=== PATIENT | male | born 1950 | race Hispanic/Latino ===

== ENCOUNTER 2021-07-31 11:01 | Outpatient (CLI) | payer MEDICARE ==
[2021-07-31] MEDS ORDERED: LIDOCAINE (4%) 40 MG/ML TOPICAL SOLN 50 ML BOTTLE TP ONE (11:49)
[2021-07-31] MEDS ORDERED: SILVER NITRATE APPLICATOR 1 EA TP ONE (12:25)
== END 2021-07-31 11:02 | disposition home or self-care (01) ==
LOC: WOUND 11:01
PROVIDERS: ATTEND Surgery
DX: T87.89 Other complications of amputation stump (principal); E11.621 Type 2 diabetes mellitus with foot ulcer; L97.522 Non-pressure chronic ulcer of other part of left foot with fat layer exposed; E11.622 Type 2 diabetes mellitus with other skin ulcer; L97.822 Non-pressure chronic ulcer of other part of left lower leg with fat layer exposed; L97.812 Non-pressure chronic ulcer of other part of right lower leg with fat layer exposed; L97.111 Non-pressure chronic ulcer of right thigh limited to breakdown of skin; L89.896 Pressure-induced deep tissue damage of other site; L98.492 Non-pressure chronic ulcer of skin of other sites with fat layer exposed; S71.101A Unspecified open wound, right thigh, initial encounter; E11.40 Type 2 diabetes mellitus with diabetic neuropathy, unspecified; E11.22 Type 2 diabetes mellitus with diabetic chronic kidney disease; I12.9 Hypertensive chronic kidney disease with stage 1 through stage 4 chronic kidney disease, or unspecified chronic kidney disease; N18.9 Chronic kidney disease, unspecified; L02.512 Cutaneous abscess of left hand; Z87.891 Personal history of nicotine dependence; Z96.643 Presence of artificial hip joint, bilateral; Z79.4 Long term (current) use of insulin; Z79.82 Long term (current) use of aspirin; X58.XXXA Exposure to other specified factors, initial encounter; Y93.89 Activity, other specified; Y92.89 Other specified places as the place of occurrence of the external cause; Y99.8 Other external cause status; Y83.5 Amputation of limb(s) as the cause of abnormal reaction of the patient, or of later complication, without mention of misadventure at the time of the procedure; Y92.238 Other place in hospital as the place of occurrence of the external cause
CPT/HCPCS: 11042; 11045; G0463; 99202; 99212

== ENCOUNTER 2021-08-07 10:32 | Outpatient (CLI) | payer MEDICARE ==
[2021-08-07] MEDS ORDERED: LIDOCAINE (4%) 40 MG/ML TOPICAL SOLN 50 ML BOTTLE TP ONE (11:51)
[2021-08-07] MEDS ORDERED: SILVER NITRATE APPLICATOR 1 EA TP ONE (12:44)
== END 2021-08-07 10:33 | disposition home or self-care (01) ==
LOC: WOUND 10:32
PROVIDERS: ATTEND Surgery
DX: T87.89 Other complications of amputation stump (principal); E11.621 Type 2 diabetes mellitus with foot ulcer; L97.522 Non-pressure chronic ulcer of other part of left foot with fat layer exposed; E11.622 Type 2 diabetes mellitus with other skin ulcer; L97.822 Non-pressure chronic ulcer of other part of left lower leg with fat layer exposed; L97.812 Non-pressure chronic ulcer of other part of right lower leg with fat layer exposed; L97.111 Non-pressure chronic ulcer of right thigh limited to breakdown of skin; L89.896 Pressure-induced deep tissue damage of other site; L98.492 Non-pressure chronic ulcer of skin of other sites with fat layer exposed; S71.101D Unspecified open wound, right thigh, subsequent encounter; E11.40 Type 2 diabetes mellitus with diabetic neuropathy, unspecified; E11.22 Type 2 diabetes mellitus with diabetic chronic kidney disease; I12.9 Hypertensive chronic kidney disease with stage 1 through stage 4 chronic kidney disease, or unspecified chronic kidney disease; N18.9 Chronic kidney disease, unspecified; L02.512 Cutaneous abscess of left hand; Z87.891 Personal history of nicotine dependence; Z96.643 Presence of artificial hip joint, bilateral; Z79.4 Long term (current) use of insulin; Z79.82 Long term (current) use of aspirin; X58.XXXD Exposure to other specified factors, subsequent encounter; Y83.5 Amputation of limb(s) as the cause of abnormal reaction of the patient, or of later complication, without mention of misadventure at the time of the procedure

== ENCOUNTER 2021-08-10 09:59 | Outpatient (CLI) | payer MEDICARE | END 2021-08-10 10:00 | disposition home or self-care (01) | LOC: LAB 09:59 | PROVIDERS: ATTEND Surgery | DX: E08.621 Diabetes mellitus due to underlying condition with foot ulcer (principal) | CPT/HCPCS: 36415; 83036 ==

== ENCOUNTER 2021-08-14 10:29 | Outpatient (CLI) | payer MEDICARE ==
[2021-08-14] MEDS ORDERED: LIDOCAINE (4%) 40 MG/ML TOPICAL SOLN 50 ML BOTTLE TP ONE ×2 (11:00→11:02)
[2021-08-14] MEDS ORDERED: SILVER NITRATE APPLICATOR 1 EA TP ONE (12:45)
== END 2021-08-14 10:30 | disposition home or self-care (01) ==
LOC: WOUND 10:29
PROVIDERS: ATTEND Surgery
DX: T87.89 Other complications of amputation stump (principal); E11.621 Type 2 diabetes mellitus with foot ulcer; L97.522 Non-pressure chronic ulcer of other part of left foot with fat layer exposed; E11.622 Type 2 diabetes mellitus with other skin ulcer; L97.822 Non-pressure chronic ulcer of other part of left lower leg with fat layer exposed; L97.812 Non-pressure chronic ulcer of other part of right lower leg with fat layer exposed; L97.111 Non-pressure chronic ulcer of right thigh limited to breakdown of skin; L89.896 Pressure-induced deep tissue damage of other site; L98.492 Non-pressure chronic ulcer of skin of other sites with fat layer exposed; S71.101D Unspecified open wound, right thigh, subsequent encounter; E11.40 Type 2 diabetes mellitus with diabetic neuropathy, unspecified; E11.22 Type 2 diabetes mellitus with diabetic chronic kidney disease; I12.9 Hypertensive chronic kidney disease with stage 1 through stage 4 chronic kidney disease, or unspecified chronic kidney disease; N18.9 Chronic kidney disease, unspecified; L02.512 Cutaneous abscess of left hand; Z87.891 Personal history of nicotine dependence; Z96.643 Presence of artificial hip joint, bilateral; Z79.4 Long term (current) use of insulin; Z79.82 Long term (current) use of aspirin; X58.XXXD Exposure to other specified factors, subsequent encounter; Y83.5 Amputation of limb(s) as the cause of abnormal reaction of the patient, or of later complication, without mention of misadventure at the time of the procedure

== ENCOUNTER 2021-08-21 10:02 | Outpatient (CLI) | payer MEDICARE ==
[2021-08-21] MEDS ORDERED: LIDOCAINE (4%) 40 MG/ML TOPICAL SOLN 50 ML BOTTLE TP ONE (10:42)
== END 2021-08-21 10:03 | disposition home or self-care (01) ==
LOC: WOUND 10:02
PROVIDERS: ATTEND Surgery
DX: T87.89 Other complications of amputation stump (principal); E11.621 Type 2 diabetes mellitus with foot ulcer; L97.522 Non-pressure chronic ulcer of other part of left foot with fat layer exposed; E11.622 Type 2 diabetes mellitus with other skin ulcer; L97.822 Non-pressure chronic ulcer of other part of left lower leg with fat layer exposed; L97.812 Non-pressure chronic ulcer of other part of right lower leg with fat layer exposed; L97.111 Non-pressure chronic ulcer of right thigh limited to breakdown of skin; L89.896 Pressure-induced deep tissue damage of other site; L98.492 Non-pressure chronic ulcer of skin of other sites with fat layer exposed; S71.101D Unspecified open wound, right thigh, subsequent encounter; E11.40 Type 2 diabetes mellitus with diabetic neuropathy, unspecified; E11.22 Type 2 diabetes mellitus with diabetic chronic kidney disease; I12.9 Hypertensive chronic kidney disease with stage 1 through stage 4 chronic kidney disease, or unspecified chronic kidney disease; N18.9 Chronic kidney disease, unspecified; L02.512 Cutaneous abscess of left hand; Z87.891 Personal history of nicotine dependence; Z96.643 Presence of artificial hip joint, bilateral; Z79.4 Long term (current) use of insulin; Z79.82 Long term (current) use of aspirin; X58.XXXD Exposure to other specified factors, subsequent encounter; Y83.5 Amputation of limb(s) as the cause of abnormal reaction of the patient, or of later complication, without mention of misadventure at the time of the procedure

== ENCOUNTER 2021-08-28 10:24 | Outpatient (CLI) | payer MEDICARE | END 2021-08-28 10:25 | disposition home or self-care (01) | LOC: WOUND 10:24 | PROVIDERS: ATTEND Surgery | DX: T87.89 Other complications of amputation stump (principal); E11.621 Type 2 diabetes mellitus with foot ulcer; L97.522 Non-pressure chronic ulcer of other part of left foot with fat layer exposed; E11.622 Type 2 diabetes mellitus with other skin ulcer; L97.822 Non-pressure chronic ulcer of other part of left lower leg with fat layer exposed; L97.812 Non-pressure chronic ulcer of other part of right lower leg with fat layer exposed; L97.111 Non-pressure chronic ulcer of right thigh limited to breakdown of skin; L89.896 Pressure-induced deep tissue damage of other site; L98.492 Non-pressure chronic ulcer of skin of other sites with fat layer exposed; S71.101D Unspecified open wound, right thigh, subsequent encounter; E11.40 Type 2 diabetes mellitus with diabetic neuropathy, unspecified; E11.22 Type 2 diabetes mellitus with diabetic chronic kidney disease; I12.9 Hypertensive chronic kidney disease with stage 1 through stage 4 chronic kidney disease, or unspecified chronic kidney disease; N18.9 Chronic kidney disease, unspecified; L02.512 Cutaneous abscess of left hand; Z87.891 Personal history of nicotine dependence; Z96.643 Presence of artificial hip joint, bilateral; Z79.4 Long term (current) use of insulin; Z79.82 Long term (current) use of aspirin; X58.XXXD Exposure to other specified factors, subsequent encounter; Y83.5 Amputation of limb(s) as the cause of abnormal reaction of the patient, or of later complication, without mention of misadventure at the time of the procedure ==

== ENCOUNTER 2021-09-06 06:05 | Day surgery (SDC) | payer MEDICARE ==
[~2021-09-06 06:05] MED LIST: LACTATED RINGERS 1,000 ML IV SCH
[2021-09-06] MEDS ORDERED: BACTERIOSTATIC SODIUM CHLORIDE 0.9% 30 ML VIAL INFILTRATI ONE (06:35)
--- NOTE | 2021-09-06 07:28 | Anesthesia Consultation ---
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
--- NOTE | 2021-09-06 07:28 | Anesthesia Day of Surgery ---
Anesthesia Day of Surgery - Day of Surgery Patient Examined: Yes Patient H&P Reviewed: Yes Patient is NPO: Yes Beta Blockers: Yes
[2021-09-06] MEDS ORDERED: LIDOCAINE MPF (2%) 20 MG/1 ML VIAL 5 ML ONE (07:41)
[2021-09-06] MEDS ORDERED: fentaNYL 100 MCG/2 ML INJ ONE (07:41)
[2021-09-06] MEDS ORDERED: propofoL 200 MG/20 ML VIAL IV ONE (07:41)
[2021-09-06] MEDS ORDERED: ONDANSETRON 4 MG/2 ML INJ IV PRN (08:00)
[2021-09-06] MEDS ORDERED: ONDANSETRON 4 MG/2 ML INJ ONE (08:00)
[2021-09-06] MEDS ORDERED: PHENYLEPHRINE/NS 1,000 MCG/10 ML SYRINGE (OR USE) IV ONE (08:07)
[2021-09-06] MEDS ORDERED: WATER FOR IRRIG STERILE 2000 ML IR ONE (09:00)
[2021-09-06] MEDS: HYDROmorphone 1 MG/1 ML INJ IV PRN ×4 (09:50→10:20)
--- NOTE | 2021-09-06 09:57 | Operative Report ---
DATE OF SURGERY: 09/06/2021 PREOPERATIVE DIAGNOSES: 1. Urinary retention. 2. Tight phimosis. POSTOPERATIVE DIAGNOSES: 1. Urinary retention. 2. Tight phimosis. PROCEDURES: 1. Dorsal slit. 2. Cystoscopy with urethral dilation and placement of a Vargas catheter. ATTENDING: Darrell Cool MD ASSISTANTS: None. ANESTHESIA: General. ESTIMATED BLOOD LOSS: 25 mL. DRAINS: A 16-Belgian [place] tip catheter. SPECIMENS: None. COMPLICATIONS: None. INDICATIONS FOR PROCEDURE: The patient is a 71-year-old man with multiple comorbidities who had a tight phimosis that was unable to be retracted in the office. He also had signs and symptoms of urinary retention, most likely due to the phimosis. He was brought to the operating room for a dorsal slit and cystoscopy. DESCRIPTION OF PROCEDURE IN DETAIL: After induction of suitable anesthesia, the patient was positioned and prepared in the dorsal lithotomy position. Upon an examination under anesthesia, it was clear that the patient had a very tight phimosis and a pinpoint hole at the end of the skin. It was unclear if the skin could not be retracted. Using blunt dissection with hemostats, the distal skin was sequentially dilated. There were tight adhesions to the glans penis. Couple of hemostats dissected into the dartos creating some period of time needed to find the true lumen. Ultimately with hemostat traction and palpation of the glans penis, we were able to find the inner prepuce of the foreskin. We were then able to find the glans penis. It was uninjured. We were also able to find the urethral meatus. At this point, flexible cystoscopy was performed and the patient had multiple spots of a urethral stricture. The catheter could not be passed into the bladder. A Glidewire was attempted to be passed into the bladder and it was unclear if it was there. We made the decision to then use fluoroscopy to place the wire into the bladder and confirm its location. We used a 5-Belgian open-ended catheter to help with this portion. We also used a sensor tip wire. With fluoroscopy, we were able to see that the wire was clearly and safely in the bladder. The urethra was then dilated with S-shaped urethral dilators. We dilated the urethra up to 18-Belgian. A 16-Belgian s[place] tip catheter was then placed and secured. At this point, we returned our attention to the excess preputial skin. A dorsal and ventral slit was performed to allow for visualization and mobility of the glans penis. The the skin edges were then reapproximated with chromic suture to ensure hemostasis. The false dissection passages were reapproximated as well for cosmetic as well as hemostatic purposes. Once complete, dressings were applied. The patient was then awakened from anesthesia and transported to the recovery room in stable condition. He tolerated the procedure well. He will come back in 1 week for catheter removal and discussion of a more definitive solution. TID: [id number] RECEIPT: [id number] NOLAN/SARWAT
[2021-09-06] MEDS ORDERED: oxyCODONE /ACETAMINOPHEN 5-325MG TAB PO NR (10:31)
--- NOTE | 2021-09-06 11:40 | Post Anesthesia Evaluation ---
- Post Anesthesia Evaluation Patient Participated: Yes Airway Patent: Yes Stable Respiratory Function: Yes Nausea/Vomiting: No Temp > 96.8F: Yes Pain Manageable: Yes Adequeate Hydration: Yes Anesthesia Complications: No
[2021-09-06 12:40] VITALS: BP 118/71
--- NOTE | 2021-09-06 16:22 | Fluoroscopy Report ---
Retrograde urography fluoroscopy INDICATION: Stenosis causing urinary obstruction. Urinary retention IMPRESSION: Successful cannulation of the urinary bladder with injection of the distal right ureter. Fluoroscopy time: 0.7 minutes. Fluoroscopic images: 9. Signer Name: Sumit Russo MD Signed: 09/06/2021 4:17 PM Workstation Name: [id number]
== END 2021-09-06 12:00 | disposition home or self-care (01) ==
LOC: OR 06:05
PROVIDERS: ATTEND Urology
DX: R33.9 Retention of urine, unspecified (principal); N47.1 Phimosis; I25.10 Atherosclerotic heart disease of native coronary artery without angina pectoris; I73.9 Peripheral vascular disease, unspecified; E11.9 Type 2 diabetes mellitus without complications; E66.9 Obesity, unspecified; I11.0 Hypertensive heart disease with heart failure; I48.91 Unspecified atrial fibrillation; Z87.891 Personal history of nicotine dependence; Z79.82 Long term (current) use of aspirin; Z79.4 Long term (current) use of insulin; Z98.890 Other specified postprocedural states
CPT/HCPCS: 36415; 52281; 54001; 74420; 82962; 84132; A4217; C1726; C1769; J0690; J1170; J2370; J2405; J2704; J3010; J7120; Q9967

== ENCOUNTER 2021-09-11 09:42 | Outpatient (CLI) | payer MEDICARE ==
[2021-09-11] MEDS ORDERED: LIDOCAINE (4%) 40 MG/ML TOPICAL SOLN 50 ML BOTTLE TP ONE (10:48)
== END 2021-09-11 09:43 | disposition home or self-care (01) ==
LOC: WOUND 09:42
PROVIDERS: ATTEND Surgery
DX: T87.89 Other complications of amputation stump (principal); E11.621 Type 2 diabetes mellitus with foot ulcer; L97.522 Non-pressure chronic ulcer of other part of left foot with fat layer exposed; E11.622 Type 2 diabetes mellitus with other skin ulcer; L97.822 Non-pressure chronic ulcer of other part of left lower leg with fat layer exposed; L97.812 Non-pressure chronic ulcer of other part of right lower leg with fat layer exposed; L89.896 Pressure-induced deep tissue damage of other site; L98.492 Non-pressure chronic ulcer of skin of other sites with fat layer exposed; E11.40 Type 2 diabetes mellitus with diabetic neuropathy, unspecified; E11.22 Type 2 diabetes mellitus with diabetic chronic kidney disease; I12.9 Hypertensive chronic kidney disease with stage 1 through stage 4 chronic kidney disease, or unspecified chronic kidney disease; N18.9 Chronic kidney disease, unspecified; E11.51 Type 2 diabetes mellitus with diabetic peripheral angiopathy without gangrene; L02.512 Cutaneous abscess of left hand; Z87.891 Personal history of nicotine dependence; Z96.643 Presence of artificial hip joint, bilateral; Z79.4 Long term (current) use of insulin; Z79.82 Long term (current) use of aspirin; Z79.01 Long term (current) use of anticoagulants; Y83.5 Amputation of limb(s) as the cause of abnormal reaction of the patient, or of later complication, without mention of misadventure at the time of the procedure

== ENCOUNTER 2021-09-25 09:54 | Outpatient (CLI) | payer MEDICARE ==
[2021-09-25] MEDS ORDERED: LIDOCAINE (4%) 40 MG/ML TOPICAL SOLN 50 ML BOTTLE TP ONE (12:00)
== END 2021-09-25 09:55 | disposition home or self-care (01) ==
LOC: WOUND 09:54
PROVIDERS: ATTEND Surgery
DX: T87.89 Other complications of amputation stump (principal); E11.621 Type 2 diabetes mellitus with foot ulcer; L97.522 Non-pressure chronic ulcer of other part of left foot with fat layer exposed; E11.622 Type 2 diabetes mellitus with other skin ulcer; L97.822 Non-pressure chronic ulcer of other part of left lower leg with fat layer exposed; L97.812 Non-pressure chronic ulcer of other part of right lower leg with fat layer exposed; L89.896 Pressure-induced deep tissue damage of other site; L98.492 Non-pressure chronic ulcer of skin of other sites with fat layer exposed; E11.40 Type 2 diabetes mellitus with diabetic neuropathy, unspecified; E11.22 Type 2 diabetes mellitus with diabetic chronic kidney disease; I12.9 Hypertensive chronic kidney disease with stage 1 through stage 4 chronic kidney disease, or unspecified chronic kidney disease; N18.9 Chronic kidney disease, unspecified; E11.51 Type 2 diabetes mellitus with diabetic peripheral angiopathy without gangrene; L02.512 Cutaneous abscess of left hand; Z87.891 Personal history of nicotine dependence; Z96.643 Presence of artificial hip joint, bilateral; Z79.4 Long term (current) use of insulin; Z79.82 Long term (current) use of aspirin; Z79.01 Long term (current) use of anticoagulants; Y83.5 Amputation of limb(s) as the cause of abnormal reaction of the patient, or of later complication, without mention of misadventure at the time of the procedure

== ENCOUNTER 2021-10-23 08:20 | Outpatient (CLI) | payer MEDICARE ==
[2021-10-23] MEDS ORDERED: LIDOCAINE (4%) 40 MG/ML TOPICAL SOLN 50 ML BOTTLE TP ONE (08:22)
== END 2021-10-23 08:21 | disposition home or self-care (01) ==
LOC: WOUND 08:20
PROVIDERS: ATTEND Surgery
DX: T87.89 Other complications of amputation stump (principal); E11.621 Type 2 diabetes mellitus with foot ulcer; L97.522 Non-pressure chronic ulcer of other part of left foot with fat layer exposed; E11.622 Type 2 diabetes mellitus with other skin ulcer; L97.822 Non-pressure chronic ulcer of other part of left lower leg with fat layer exposed; L97.812 Non-pressure chronic ulcer of other part of right lower leg with fat layer exposed; L89.896 Pressure-induced deep tissue damage of other site; L98.492 Non-pressure chronic ulcer of skin of other sites with fat layer exposed; E11.40 Type 2 diabetes mellitus with diabetic neuropathy, unspecified; E11.22 Type 2 diabetes mellitus with diabetic chronic kidney disease; I12.9 Hypertensive chronic kidney disease with stage 1 through stage 4 chronic kidney disease, or unspecified chronic kidney disease; N18.9 Chronic kidney disease, unspecified; E11.51 Type 2 diabetes mellitus with diabetic peripheral angiopathy without gangrene; L02.512 Cutaneous abscess of left hand; Z87.891 Personal history of nicotine dependence; Z96.643 Presence of artificial hip joint, bilateral; Z79.4 Long term (current) use of insulin; Z79.82 Long term (current) use of aspirin; Z79.01 Long term (current) use of anticoagulants; Y83.5 Amputation of limb(s) as the cause of abnormal reaction of the patient, or of later complication, without mention of misadventure at the time of the procedure

== ENCOUNTER 2021-10-30 08:16 | Outpatient (CLI) | payer MEDICARE ==
[2021-10-30] MEDS ORDERED: LIDOCAINE (4%) 40 MG/ML TOPICAL SOLN 50 ML BOTTLE TP SCH (09:00)
== END 2021-10-30 08:17 | disposition home or self-care (01) ==
LOC: WOUND 08:16
PROVIDERS: ATTEND Surgery
DX: T87.89 Other complications of amputation stump (principal); E11.621 Type 2 diabetes mellitus with foot ulcer; L97.522 Non-pressure chronic ulcer of other part of left foot with fat layer exposed; E11.622 Type 2 diabetes mellitus with other skin ulcer; L97.822 Non-pressure chronic ulcer of other part of left lower leg with fat layer exposed; L97.812 Non-pressure chronic ulcer of other part of right lower leg with fat layer exposed; L89.896 Pressure-induced deep tissue damage of other site; L98.492 Non-pressure chronic ulcer of skin of other sites with fat layer exposed; S81.811A Laceration without foreign body, right lower leg, initial encounter; E11.40 Type 2 diabetes mellitus with diabetic neuropathy, unspecified; E11.22 Type 2 diabetes mellitus with diabetic chronic kidney disease; I12.9 Hypertensive chronic kidney disease with stage 1 through stage 4 chronic kidney disease, or unspecified chronic kidney disease; N18.9 Chronic kidney disease, unspecified; E11.51 Type 2 diabetes mellitus with diabetic peripheral angiopathy without gangrene; L02.512 Cutaneous abscess of left hand; Z87.891 Personal history of nicotine dependence; Z96.643 Presence of artificial hip joint, bilateral; Z79.4 Long term (current) use of insulin; Z79.82 Long term (current) use of aspirin; Z79.01 Long term (current) use of anticoagulants; Y83.5 Amputation of limb(s) as the cause of abnormal reaction of the patient, or of later complication, without mention of misadventure at the time of the procedure; X58.XXXA Exposure to other specified factors, initial encounter; Y93.89 Activity, other specified; Y92.89 Other specified places as the place of occurrence of the external cause; Y99.8 Other external cause status

== ENCOUNTER 2021-11-06 08:26 | Outpatient (CLI) | payer MEDICARE ==
[2021-11-06] MEDS ORDERED: LIDOCAINE (4%) 40 MG/ML TOPICAL SOLN 50 ML BOTTLE TP SCH (09:00)
== END 2021-11-06 08:27 | disposition home or self-care (01) ==
LOC: WOUND 08:26
PROVIDERS: ATTEND Surgery
DX: T87.89 Other complications of amputation stump (principal); L97.522 Non-pressure chronic ulcer of other part of left foot with fat layer exposed; E11.622 Type 2 diabetes mellitus with other skin ulcer; L97.822 Non-pressure chronic ulcer of other part of left lower leg with fat layer exposed; L97.812 Non-pressure chronic ulcer of other part of right lower leg with fat layer exposed; L89.896 Pressure-induced deep tissue damage of other site; L98.492 Non-pressure chronic ulcer of skin of other sites with fat layer exposed; S81.811D Laceration without foreign body, right lower leg, subsequent encounter; E11.40 Type 2 diabetes mellitus with diabetic neuropathy, unspecified; E11.22 Type 2 diabetes mellitus with diabetic chronic kidney disease; I12.9 Hypertensive chronic kidney disease with stage 1 through stage 4 chronic kidney disease, or unspecified chronic kidney disease; N18.9 Chronic kidney disease, unspecified; E11.51 Type 2 diabetes mellitus with diabetic peripheral angiopathy without gangrene; L02.512 Cutaneous abscess of left hand; Z87.891 Personal history of nicotine dependence; Z96.643 Presence of artificial hip joint, bilateral; Z79.4 Long term (current) use of insulin; Z79.82 Long term (current) use of aspirin; Z79.01 Long term (current) use of anticoagulants; Y83.5 Amputation of limb(s) as the cause of abnormal reaction of the patient, or of later complication, without mention of misadventure at the time of the procedure; X58.XXXD Exposure to other specified factors, subsequent encounter

== ENCOUNTER 2021-11-20 08:17 | Outpatient (CLI) | payer MEDICARE ==
[2021-11-20] MEDS ORDERED: LIDOCAINE (4%) 40 MG/ML TOPICAL SOLN 50 ML BOTTLE TP ONE (08:19)
== END 2021-11-20 08:18 | disposition home or self-care (01) ==
LOC: WOUND 08:17
PROVIDERS: ATTEND Surgery
DX: T87.89 Other complications of amputation stump (principal); E11.621 Type 2 diabetes mellitus with foot ulcer; L97.522 Non-pressure chronic ulcer of other part of left foot with fat layer exposed; E11.622 Type 2 diabetes mellitus with other skin ulcer; L97.822 Non-pressure chronic ulcer of other part of left lower leg with fat layer exposed; L97.812 Non-pressure chronic ulcer of other part of right lower leg with fat layer exposed; L89.896 Pressure-induced deep tissue damage of other site; L98.492 Non-pressure chronic ulcer of skin of other sites with fat layer exposed; S81.811D Laceration without foreign body, right lower leg, subsequent encounter; E11.40 Type 2 diabetes mellitus with diabetic neuropathy, unspecified; E11.22 Type 2 diabetes mellitus with diabetic chronic kidney disease; I12.9 Hypertensive chronic kidney disease with stage 1 through stage 4 chronic kidney disease, or unspecified chronic kidney disease; N18.9 Chronic kidney disease, unspecified; E11.51 Type 2 diabetes mellitus with diabetic peripheral angiopathy without gangrene; L02.512 Cutaneous abscess of left hand; Z87.891 Personal history of nicotine dependence; Z96.643 Presence of artificial hip joint, bilateral; Z79.4 Long term (current) use of insulin; Z79.82 Long term (current) use of aspirin; Z79.01 Long term (current) use of anticoagulants; Y83.5 Amputation of limb(s) as the cause of abnormal reaction of the patient, or of later complication, without mention of misadventure at the time of the procedure; X58.XXXD Exposure to other specified factors, subsequent encounter

== ENCOUNTER 2021-12-04 08:17 | Outpatient (CLI) | payer MEDICARE ==
[2021-12-04] MEDS ORDERED: LIDOCAINE (4%) 40 MG/ML TOPICAL SOLN 50 ML BOTTLE TP ONE (08:22)
== END 2021-12-04 08:18 | disposition home or self-care (01) ==
LOC: WOUND 08:17
PROVIDERS: ATTEND Surgery
DX: T87.89 Other complications of amputation stump (principal); E11.621 Type 2 diabetes mellitus with foot ulcer; L97.522 Non-pressure chronic ulcer of other part of left foot with fat layer exposed; E11.622 Type 2 diabetes mellitus with other skin ulcer; L89.892 Pressure ulcer of other site, stage 2; L97.812 Non-pressure chronic ulcer of other part of right lower leg with fat layer exposed; L97.822 Non-pressure chronic ulcer of other part of left lower leg with fat layer exposed; L89.896 Pressure-induced deep tissue damage of other site; L98.492 Non-pressure chronic ulcer of skin of other sites with fat layer exposed; L97.111 Non-pressure chronic ulcer of right thigh limited to breakdown of skin; S81.811D Laceration without foreign body, right lower leg, subsequent encounter; S91.115D Laceration without foreign body of left lesser toe(s) without damage to nail, subsequent encounter; E11.40 Type 2 diabetes mellitus with diabetic neuropathy, unspecified; E11.22 Type 2 diabetes mellitus with diabetic chronic kidney disease; I12.9 Hypertensive chronic kidney disease with stage 1 through stage 4 chronic kidney disease, or unspecified chronic kidney disease; N18.9 Chronic kidney disease, unspecified; E11.51 Type 2 diabetes mellitus with diabetic peripheral angiopathy without gangrene; L02.512 Cutaneous abscess of left hand; Z87.891 Personal history of nicotine dependence; Z96.643 Presence of artificial hip joint, bilateral; Z79.4 Long term (current) use of insulin; Z79.82 Long term (current) use of aspirin; Z79.01 Long term (current) use of anticoagulants; Y83.5 Amputation of limb(s) as the cause of abnormal reaction of the patient, or of later complication, without mention of misadventure at the time of the procedure; X58.XXXD Exposure to other specified factors, subsequent encounter

== ENCOUNTER 2021-12-18 08:16 | Outpatient (CLI) | payer BC, MEDICARE ==
[2021-12-18] MEDS ORDERED: LIDOCAINE (4%) 40 MG/ML TOPICAL SOLN 50 ML BOTTLE TP SCH (09:00)
== END 2021-12-18 08:17 | disposition home or self-care (01) ==
LOC: WOUND 08:16
PROVIDERS: ATTEND Surgery
DX: T87.89 Other complications of amputation stump (principal); E11.621 Type 2 diabetes mellitus with foot ulcer; L97.522 Non-pressure chronic ulcer of other part of left foot with fat layer exposed; E11.622 Type 2 diabetes mellitus with other skin ulcer; L89.892 Pressure ulcer of other site, stage 2; L97.812 Non-pressure chronic ulcer of other part of right lower leg with fat layer exposed; L97.822 Non-pressure chronic ulcer of other part of left lower leg with fat layer exposed; L89.896 Pressure-induced deep tissue damage of other site; L98.492 Non-pressure chronic ulcer of skin of other sites with fat layer exposed; L97.111 Non-pressure chronic ulcer of right thigh limited to breakdown of skin; S81.811D Laceration without foreign body, right lower leg, subsequent encounter; S91.115D Laceration without foreign body of left lesser toe(s) without damage to nail, subsequent encounter; E11.40 Type 2 diabetes mellitus with diabetic neuropathy, unspecified; E11.22 Type 2 diabetes mellitus with diabetic chronic kidney disease; I12.9 Hypertensive chronic kidney disease with stage 1 through stage 4 chronic kidney disease, or unspecified chronic kidney disease; N18.9 Chronic kidney disease, unspecified; E11.51 Type 2 diabetes mellitus with diabetic peripheral angiopathy without gangrene; L02.512 Cutaneous abscess of left hand; Z87.891 Personal history of nicotine dependence; Z96.643 Presence of artificial hip joint, bilateral; Z79.4 Long term (current) use of insulin; Z79.82 Long term (current) use of aspirin; Z79.01 Long term (current) use of anticoagulants; Y83.5 Amputation of limb(s) as the cause of abnormal reaction of the patient, or of later complication, without mention of misadventure at the time of the procedure; X58.XXXD Exposure to other specified factors, subsequent encounter

== ENCOUNTER 2022-01-08 08:22 | Outpatient (CLI) | payer MEDICARE ==
[~2022-01-08 08:22] MED LIST changes: -LACTATED RINGERS 1,000 ML IV SCH; +LIDOCAINE (4%) 40 MG/ML TOPICAL SOLN 50 ML BOTTLE TP ONE
== END 2022-01-08 08:23 | disposition home or self-care (01) ==
LOC: WOUND 08:22
PROVIDERS: ATTEND Surgery
DX: T87.89 Other complications of amputation stump (principal); E11.622 Type 2 diabetes mellitus with other skin ulcer; L98.492 Non-pressure chronic ulcer of skin of other sites with fat layer exposed; L89.892 Pressure ulcer of other site, stage 2; L97.111 Non-pressure chronic ulcer of right thigh limited to breakdown of skin; L02.512 Cutaneous abscess of left hand; S91.115D Laceration without foreign body of left lesser toe(s) without damage to nail, subsequent encounter; S81.019D Laceration without foreign body, unspecified knee, subsequent encounter; E11.51 Type 2 diabetes mellitus with diabetic peripheral angiopathy without gangrene; E11.40 Type 2 diabetes mellitus with diabetic neuropathy, unspecified; E11.22 Type 2 diabetes mellitus with diabetic chronic kidney disease; I12.9 Hypertensive chronic kidney disease with stage 1 through stage 4 chronic kidney disease, or unspecified chronic kidney disease; N18.9 Chronic kidney disease, unspecified; Z79.4 Long term (current) use of insulin; Z79.82 Long term (current) use of aspirin; Z79.84 Long term (current) use of oral hypoglycemic drugs; Z79.899 Other long term (current) drug therapy; X58.XXXD Exposure to other specified factors, subsequent encounter; Y83.5 Amputation of limb(s) as the cause of abnormal reaction of the patient, or of later complication, without mention of misadventure at the time of the procedure

== ENCOUNTER 2022-01-22 09:31 | Outpatient (CLI) | payer MEDICARE ==
[2022-01-22] MEDS ORDERED: LIDOCAINE (4%) 40 MG/ML TOPICAL SOLN 50 ML BOTTLE TP ONE ×2 (10:05→18:51)
== END 2022-01-22 09:32 | disposition home or self-care (01) ==
LOC: WOUND 09:31
PROVIDERS: ATTEND Surgery
DX: T87.89 Other complications of amputation stump (principal); S81.019D Laceration without foreign body, unspecified knee, subsequent encounter; S91.115D Laceration without foreign body of left lesser toe(s) without damage to nail, subsequent encounter; E11.622 Type 2 diabetes mellitus with other skin ulcer; L98.492 Non-pressure chronic ulcer of skin of other sites with fat layer exposed; L89.892 Pressure ulcer of other site, stage 2; L97.111 Non-pressure chronic ulcer of right thigh limited to breakdown of skin; L02.512 Cutaneous abscess of left hand; E11.22 Type 2 diabetes mellitus with diabetic chronic kidney disease; I12.9 Hypertensive chronic kidney disease with stage 1 through stage 4 chronic kidney disease, or unspecified chronic kidney disease; N18.9 Chronic kidney disease, unspecified; E11.51 Type 2 diabetes mellitus with diabetic peripheral angiopathy without gangrene; E11.40 Type 2 diabetes mellitus with diabetic neuropathy, unspecified; Z79.84 Long term (current) use of oral hypoglycemic drugs; Z79.4 Long term (current) use of insulin; Z79.82 Long term (current) use of aspirin; Z79.899 Other long term (current) drug therapy; Z87.891 Personal history of nicotine dependence; X58.XXXD Exposure to other specified factors, subsequent encounter; Y83.5 Amputation of limb(s) as the cause of abnormal reaction of the patient, or of later complication, without mention of misadventure at the time of the procedure

== ENCOUNTER 2022-02-05 09:29 | Outpatient (CLI) | payer MEDICARE ==
[2022-02-05] MEDS ORDERED: LIDOCAINE (4%) 40 MG/ML TOPICAL SOLN 50 ML BOTTLE TP ONE (09:42)
[2022-02-05] MEDS ORDERED: SILVER NITRATE APPLICATOR 1 EA TP ONE (12:11)
== END 2022-02-05 09:30 | disposition home or self-care (01) ==
LOC: WOUND 09:29
PROVIDERS: ATTEND Surgery
DX: T87.89 Other complications of amputation stump (principal); S81.019D Laceration without foreign body, unspecified knee, subsequent encounter; S91.115D Laceration without foreign body of left lesser toe(s) without damage to nail, subsequent encounter; E11.622 Type 2 diabetes mellitus with other skin ulcer; L98.492 Non-pressure chronic ulcer of skin of other sites with fat layer exposed; L84 Corns and callosities; E11.621 Type 2 diabetes mellitus with foot ulcer; L97.522 Non-pressure chronic ulcer of other part of left foot with fat layer exposed; L97.111 Non-pressure chronic ulcer of right thigh limited to breakdown of skin; L89.892 Pressure ulcer of other site, stage 2; L02.512 Cutaneous abscess of left hand; E11.22 Type 2 diabetes mellitus with diabetic chronic kidney disease; I12.9 Hypertensive chronic kidney disease with stage 1 through stage 4 chronic kidney disease, or unspecified chronic kidney disease; N18.9 Chronic kidney disease, unspecified; E11.51 Type 2 diabetes mellitus with diabetic peripheral angiopathy without gangrene; E11.40 Type 2 diabetes mellitus with diabetic neuropathy, unspecified; Z79.84 Long term (current) use of oral hypoglycemic drugs; Z79.4 Long term (current) use of insulin; Z79.82 Long term (current) use of aspirin; Z79.899 Other long term (current) drug therapy; Z87.891 Personal history of nicotine dependence; X58.XXXD Exposure to other specified factors, subsequent encounter; Y83.8 Other surgical procedures as the cause of abnormal reaction of the patient, or of later complication, without mention of misadventure at the time of the procedure

== ENCOUNTER 2022-02-19 09:35 | Outpatient (CLI) | payer MEDICARE ==
[2022-02-19] MEDS ORDERED: LIDOCAINE (4%) 40 MG/ML TOPICAL SOLN 50 ML BOTTLE TP SCH (10:00)
== END 2022-02-19 09:36 | disposition home or self-care (01) ==
LOC: WOUND 09:35
PROVIDERS: ATTEND Surgery
DX: L89.892 Pressure ulcer of other site, stage 2 (principal); L84 Corns and callosities; T87.89 Other complications of amputation stump; S81.019D Laceration without foreign body, unspecified knee, subsequent encounter; E11.621 Type 2 diabetes mellitus with foot ulcer; L97.522 Non-pressure chronic ulcer of other part of left foot with fat layer exposed; E11.622 Type 2 diabetes mellitus with other skin ulcer; L97.111 Non-pressure chronic ulcer of right thigh limited to breakdown of skin; L02.512 Cutaneous abscess of left hand; E11.22 Type 2 diabetes mellitus with diabetic chronic kidney disease; I12.9 Hypertensive chronic kidney disease with stage 1 through stage 4 chronic kidney disease, or unspecified chronic kidney disease; N18.9 Chronic kidney disease, unspecified; E11.51 Type 2 diabetes mellitus with diabetic peripheral angiopathy without gangrene; E11.40 Type 2 diabetes mellitus with diabetic neuropathy, unspecified; Z79.84 Long term (current) use of oral hypoglycemic drugs; Z79.4 Long term (current) use of insulin; Z79.82 Long term (current) use of aspirin; Z79.899 Other long term (current) drug therapy; Z87.891 Personal history of nicotine dependence; X58.XXXD Exposure to other specified factors, subsequent encounter; Y83.5 Amputation of limb(s) as the cause of abnormal reaction of the patient, or of later complication, without mention of misadventure at the time of the procedure

== ENCOUNTER 2022-03-05 09:37 | Outpatient (CLI) | payer MEDICARE ==
[2022-03-05] MEDS ORDERED: LIDOCAINE (4%) 40 MG/ML TOPICAL SOLN 50 ML BOTTLE TP SCH (11:00)
== END 2022-03-05 09:38 | disposition home or self-care (01) ==
LOC: WOUND 09:37
PROVIDERS: ATTEND Surgery
DX: L89.893 Pressure ulcer of other site, stage 3 (principal); L84 Corns and callosities; T87.89 Other complications of amputation stump; S81.019D Laceration without foreign body, unspecified knee, subsequent encounter; E11.621 Type 2 diabetes mellitus with foot ulcer; L97.522 Non-pressure chronic ulcer of other part of left foot with fat layer exposed; E11.622 Type 2 diabetes mellitus with other skin ulcer; L98.491 Non-pressure chronic ulcer of skin of other sites limited to breakdown of skin; L97.111 Non-pressure chronic ulcer of right thigh limited to breakdown of skin; L02.512 Cutaneous abscess of left hand; E11.51 Type 2 diabetes mellitus with diabetic peripheral angiopathy without gangrene; E11.40 Type 2 diabetes mellitus with diabetic neuropathy, unspecified; E11.22 Type 2 diabetes mellitus with diabetic chronic kidney disease; I12.9 Hypertensive chronic kidney disease with stage 1 through stage 4 chronic kidney disease, or unspecified chronic kidney disease; N18.9 Chronic kidney disease, unspecified; Z79.84 Long term (current) use of oral hypoglycemic drugs; Z79.4 Long term (current) use of insulin; Z79.82 Long term (current) use of aspirin; Z79.899 Other long term (current) drug therapy; Z87.891 Personal history of nicotine dependence; X58.XXXD Exposure to other specified factors, subsequent encounter; Y83.5 Amputation of limb(s) as the cause of abnormal reaction of the patient, or of later complication, without mention of misadventure at the time of the procedure

== ENCOUNTER 2022-03-19 09:31 | Outpatient (CLI) | payer MEDICARE ==
[2022-03-19] MEDS ORDERED: LIDOCAINE (4%) 40 MG/ML TOPICAL SOLN 50 ML BOTTLE TP ONE (09:38)
[2022-03-19] MEDS ORDERED: SILVER NITRATE APPLICATOR 1 EA TP ONE (11:05)
[2022-03-19] MEDS ORDERED: VITAMIN A & D OINT 56.7 GM TP SCH (12:00)
== END 2022-03-19 09:32 | disposition home or self-care (01) ==
LOC: WOUND 09:31
PROVIDERS: ATTEND Surgery
DX: T87.89 Other complications of amputation stump (principal); E11.621 Type 2 diabetes mellitus with foot ulcer; L97.522 Non-pressure chronic ulcer of other part of left foot with fat layer exposed; E11.622 Type 2 diabetes mellitus with other skin ulcer; L98.491 Non-pressure chronic ulcer of skin of other sites limited to breakdown of skin; L97.111 Non-pressure chronic ulcer of right thigh limited to breakdown of skin; L89.892 Pressure ulcer of other site, stage 2; L84 Corns and callosities; L02.512 Cutaneous abscess of left hand; E11.51 Type 2 diabetes mellitus with diabetic peripheral angiopathy without gangrene; E11.40 Type 2 diabetes mellitus with diabetic neuropathy, unspecified; E11.22 Type 2 diabetes mellitus with diabetic chronic kidney disease; I12.9 Hypertensive chronic kidney disease with stage 1 through stage 4 chronic kidney disease, or unspecified chronic kidney disease; N18.9 Chronic kidney disease, unspecified; Z79.84 Long term (current) use of oral hypoglycemic drugs; Z79.4 Long term (current) use of insulin; Z79.82 Long term (current) use of aspirin; Z79.899 Other long term (current) drug therapy; Z87.891 Personal history of nicotine dependence; Y83.5 Amputation of limb(s) as the cause of abnormal reaction of the patient, or of later complication, without mention of misadventure at the time of the procedure
CPT/HCPCS: 17250

== ENCOUNTER 2022-05-23 06:00 | Day surgery (SDC) | payer MEDICARE ==
[2022-05-23] MEDS ORDERED: LACTATED RINGERS 1,000 ML ONE (06:28)
[2022-05-23 07:14] LABS: Hematocrit 37.9 % (35.5-45.6); Hemoglobin 12.1 gm/dl (11.8-15.2); Mean Corpuscular HGB Conc 32 % (32-34); Mean Corpuscular Volume 104 fl (84-94); Platelet Count 227 K/mm3 (140-440); Red Blood Count 3.65 M/mm3 (3.65-5.03); Red Cell Distribution Width 16.6 % (13.2-15.2)
--- NOTE | 2022-05-23 07:26 | Anesthesia Consultation ---
Anesthesia Consult and Med Hx Date of service: 05/23/22 - Airway Anesthetic Teeth Evaluation: Poor (multiple missing teeth) ROM Head & Neck: Adequate Mental/Hyoid Distance: Adequate Mallampati Class: Class III Intubation Access Assessment: Possibly Difficult - Pre-Operative Health Status ASA Pre-Surgery Classification: ASA3 Proposed Anesthetic Plan: General - Pulmonary Hx Smoking: Yes (quit 30 yrs) Hx Respiratory Symptoms: No Hx Sleep Apnea: No (AIME PRE SCREEN HIGH RISK.) - Cardiovascular System Hx Hypertension: Yes Hx Coronary Artery Disease: Yes Hx Heart Attack/AMI: No Hx Percutaneous Transluminal Coronary Angioplasty (PTCA): Yes (x2 in 2018) Hx Cardia Arrhythmia: Yes (a-fib; off ASA x 5 days) Hx Pacemaker: No Hx Internal Defibrillator: No Hx Peripheral Vascular Disease: Yes (b/l LE) - Central Nervous System Hx Neuromuscular Disorder: Yes (peripheral neuropathy) CVA: No Hx Back Pain: Yes (bilateral hip replacement) Hx Psychiatric Problems: No - Gastrointestinal Hx Gastroesophageal Reflux Disease: Yes - Endocrine Hx Renal Disease: No (BPH) Hx Liver Disease: No Hx Insulin Dependent Diabetes: Yes Hx Thyroid Disease: No - Hematic Hx Anemia: No Hx Sickle Cell Disease: No - Other Systems Hx Cancer: No Hx Obesity: Yes (BMI 41.6)
--- NOTE | 2022-05-23 07:27 | Anesthesia Day of Surgery ---
Anesthesia Day of Surgery - Day of Surgery Patient Examined: Yes Patient H&P Reviewed: Yes Patient is NPO: Yes Beta Blockers: Yes Cardiac Clearance: Yes (EF 50%)
[2022-05-23 07:39] LABS: Calcium 9.2 mg/dL (8.4-10.2)
[2022-05-23] MEDS ORDERED: HYDROmorphone 1 MG/1 ML INJ ONE (07:55)
[2022-05-23] MEDS ORDERED: propofoL 200 MG/20 ML VIAL IV ONE (07:56)
[2022-05-23] MEDS ORDERED: LIDOCAINE MPF (2%) 20 MG/1 ML VIAL 5 ML ONE (07:59)
[2022-05-23] MEDS ORDERED: LACTATED RINGERS 1,000 ML IV SCH (08:00)
[2022-05-23] MEDS ORDERED: HYDROmorphone 0.5 MG/0.5 ML INJ IV PRN ×2 (08:00)
[2022-05-23] MEDS ORDERED: FAMOTIDINE 20 MG/2 ML INJ IV NR (08:00)
[2022-05-23] MEDS ORDERED: ONDANSETRON 4 MG/2 ML INJ IV PRN (08:00)
[2022-05-23] MEDS ORDERED: DEXTROSE 50% IN WATER (25GM) 50 ML SYRINGE IV ONE (08:00)
[2022-05-23] MEDS ORDERED: MIDAZOLAM 2 MG/2 ML INJ IV NR (08:00)
[2022-05-23] MEDS ORDERED: PHENYLEPHRINE/NS 1,000 MCG/10 ML SYRINGE (OR USE) IV ONE (08:34)
[2022-05-23] MEDS ORDERED: ceFAZolin 1 GM VIAL ONE (08:35)
[2022-05-23] MEDS ORDERED: SODIUM CHLORIDE 0.9% IRRIG SOLN 2000 ML IR ONE (08:55)
[2022-05-23] MEDS ORDERED: WATER FOR IRRIG STERILE 2000 ML IR ONE (08:55)
--- NOTE | 2022-05-23 09:11 | Operative Report ---
DATE OF SURGERY: 05/23/2022 TIME: At approximately 08:15 a.m. PREOPERATIVE DIAGNOSES: 1. Poor bladder emptying. 2. Benign prostatic enlargement. POSTOPERATIVE DIAGNOSES: 1. Poor bladder emptying. 2. Benign prostatic enlargement. PROCEDURE: Rezum procedure. ATTENDING: Darrell Cool M.D. STOCK SELECTOR: None. ANESTHESIA: General. ESTIMATED BLOOD LOSS: 10 mL. DRAINS: A 16-Serbian elim ira tip catheter. SPECIMENS: None. 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 He is having difficulty emptying his bladder from a number of reasons including an enlarged prostate. He also has stricture disease. He also had a tight phimosis that was treated previously. He does have issues with poor emptying and UTIs. A cystoscopy showed prostatic enlargement. He was brought today for a Rezum procedure to deal with the prostatic enlargement component of his poor bladder emptying. DESCRIPTION OF PROCEDURE IN DETAIL: After induction of suitable anesthesia and proper positioning and preparation in the dorsal lithotomy position, cystoscopy was performed. The patient's stricture disease was still relatively tight and a 17-Serbian sheath could not pass easily through the urethra. A Glidewire was used to ensure passage of the cystoscope in the true urethral lumen and into the bladder. Once we were in the bladder, the wire was inserted even further to ensure that there was access throughout the whole procedure. Repeat cystoscopy showed prostatic enlargement, specifically at the bladder neck and on the right prostatic lobe. The wire was kept in place and the cystoscope was removed. The Rezum endoscope was then placed via urethra directly into the bladder. We followed the wire in the urethra to ensure that we did not create a false passage. Once in the bladder, the prostate was reexamined. The prostate was then treated with 2 treatments on the left lateral lobe and 3 treatments on the right lateral lobe, and 1 treatment at the bladder neck. The patient's right prostatic lobe was more adenomatous with an area extending on to the floor. That is why we used an extra treatment on the right side. The pattern was a Z like pattern as recommended. Once the treatments were complete, the prostatic urethra was inspected and there was no bleeding. The Rezum endoscope was removed and a elim ira tip catheter was placed over the wire. The wire was then removed. The patient was then awakened from anesthesia and transported to the recovery room in stable condition. He tolerated the procedure well. He will return to the office in 5 days for catheter removal. TID: [id number] RECEIPT: [id number] NOLAN/JHOAN
[2022-05-23 10:09] VITALS: BP 133/89
--- NOTE | 2022-05-23 16:46 | Post Anesthesia Evaluation ---
- Post Anesthesia Evaluation Patient Participated: Yes Airway Patent: Yes Stable Respiratory Function: Yes Nausea/Vomiting: No Temp > 96.8F: Yes Pain Manageable: Yes Adequeate Hydration: Yes Anesthesia Complications: No Block Receding Appropriately: Not Applicable Patient on Ventilator: No
== END 2022-05-23 10:30 | disposition home or self-care (01) ==
LOC: OR 06:00
PROVIDERS: ATTEND Urology
DX: N40.0 Benign prostatic hyperplasia without lower urinary tract symptoms (principal); N32.89 Other specified disorders of bladder; R33.8 Other retention of urine; I42.9 Cardiomyopathy, unspecified; I11.0 Hypertensive heart disease with heart failure; I50.9 Heart failure, unspecified; I48.91 Unspecified atrial fibrillation; K21.9 Gastro-esophageal reflux disease without esophagitis; E66.9 Obesity, unspecified; M19.90 Unspecified osteoarthritis, unspecified site; E11.51 Type 2 diabetes mellitus with diabetic peripheral angiopathy without gangrene; Z79.899 Other long term (current) drug therapy; Z96.643 Presence of artificial hip joint, bilateral; Z87.891 Personal history of nicotine dependence; Z79.4 Long term (current) use of insulin; Z79.82 Long term (current) use of aspirin; Z98.49 Cataract extraction status, unspecified eye; E78.00 Pure hypercholesterolemia, unspecified; Z98.890 Other specified postprocedural states; Z86.2 Personal history of diseases of the blood and blood-forming organs and certain disorders involving the immune mechanism; Z68.41 Body mass index [BMI] 40.0-44.9, adult
CPT/HCPCS: 36415; 53854; 80048; 82962; 85027; C1769; J0690; J1170; J2250; J2370; J2704; J3490; J7120